=== PATIENT | male | born 1980 ===

== ENCOUNTER 2024-02-19 07:41 | Outpatient (CLI) | payer OTHER ==
[2024-02-19 08:20] LABS: HEMATOCRIT 45.3 % (39.0-48.0); HEMOGLOBIN 15.2 g/dL (13-16.00); MEAN CELL VOLUME 88.4 fL (80.0-100.00); MEAN CORPUSCULAR HEMOGLOBIN 29.8 pg (27.00-32.0); MEAN CORPUSCULAR HGB CONC 33.7 g/dl (32.0-36.0); PLATELET COUNT 305 K/uL (150-450); RED BLOOD COUNT 5.12 M/uL (4.00-6.00); RED CELL DISTRIBUTION WIDTH 13.2 % (11.5-14.5)
[2024-02-19 08:24] LABS: URINE APPEARANCE Clear; URINE BILIRRUBIN Negative (NEGATIVE); URINE BLOOD Negative; URINE COLOR Yellow; URINE GLUCOSE Negative (NEGATIVE); URINE LEUKOCYTE Negative; URINE NITRATE Negative; URINE PROTEIN Negative (NEGATIVE); URINE UROBILINOGEN 0.2 E.U./dl
[2024-02-19 08:25] LABS: URINE EPITHELIAL CELLS 1.5 uL (0.0-38.8); URINE RBC 2.2 uL (0.0-20.8); URINE WBC 3.2 uL (0.0-23.2)
[2024-02-19 08:39] LABS: ERYTHROCYTE SEDIMENTATION RATE 31 mm/hr
[2024-02-19 09:07] LABS: ALBUMIN 3.8 gm/dL (3.4-5.0); BILIRUBIN TOTAL 0.45 mg/dL (0.3-1.2); CALCIUM 9.8 mg/dL (8.5-10.1); CHOL HDL RATIO 5.4 (0-5.0); CREATININE SERUM 1.16 mg/dL (0.70-1.30); GFR 68.72; GLOBULINA 3.7 G/DL (2.4-3.5); POTASSIUM 4.33 mEq/L (3.5-5.1); PROSTATIC SPECIFIC ANTIGEN 0.523 NG/ML (0.010-4.00); TOTAL PROTEIN 7.5 gm/dL (6.4-8.2); TSH 3.67 uIU/mL (0.358-3.74)
[2024-02-19 09:08] LABS: URIC ACID 6.9 mg/dL (3.5-8.5)
== END 2024-02-19 07:42 | disposition home or self-care (01) ==
LOC: LAB 07:41
PROVIDERS: ATTEND Internal Medicine
DX: I10 Essential (primary) hypertension (principal); M25.50 Pain in unspecified joint; R19.5 Other fecal abnormalities; Z12.11 Encounter for screening for malignant neoplasm of colon; Z87.442 Personal history of urinary calculi; D50.9 Iron deficiency anemia, unspecified; E78.2 Mixed hyperlipidemia; E11.9 Type 2 diabetes mellitus without complications; E03.1 Congenital hypothyroidism without goiter; N40.0 Benign prostatic hyperplasia without lower urinary tract symptoms; N39.0 Urinary tract infection, site not specified; N18.9 Chronic kidney disease, unspecified

== ENCOUNTER → 2024-02-20 09:20 | Outpatient (CLI) | payer OTHER ==
[2024-02-20 10:41] LABS: ob NEGATIVE (NEGATIVE)
== END | disposition home or self-care (01) ==
LOC: LAB 09:20
PROVIDERS: ATTEND Internal Medicine
DX: I10 Essential (primary) hypertension (principal); M25.50 Pain in unspecified joint; R19.5 Other fecal abnormalities; Z87.442 Personal history of urinary calculi; D50.9 Iron deficiency anemia, unspecified; E11.9 Type 2 diabetes mellitus without complications; E03.1 Congenital hypothyroidism without goiter; N39.0 Urinary tract infection, site not specified; E78.2 Mixed hyperlipidemia